=== PATIENT | female | born 1990 | race Caucasian/White ===

== ENCOUNTER 2017-11-11 09:47 | Emergency (ER) | payer BC ==
[2017-11-11 10:37] VITALS: BMI 22.9
[2017-11-11] MEDS ORDERED: Betamethasone Soluspan 30 mg/5mL Inj Susp IM ONE (10:47)
[2017-11-11 14:21] VITALS: BP 111/63; RESP 18; TEMP 98.3; O2SAT 100
[2017-11-11 18:22] VITALS: PULSE 84
--- NOTE | 2017-11-12 10:11 | OBHP ---
Datetime: 11/11/2017 10:07 IP Admit Plan: Observation/Evaluation; Discharge home Admit Comment, IP Provider: at 33 weeks 1 day gestational age presents to OB ED for steroid co urse due to growth lag and ultrasound. Patient without complaints at this time. Patient denies any co ntractions, vaginal bleeding, leakage of fluids. Patient reports good movement. Past medical history denies Past surgical history denies Medications vitamins, daily aspirin 81 mg No known drug allergies Obstetrical history Social history denies tobacco, drugs, alcohol Assessment: at 33 weeks and 1 day gestational age, small for gestational age Plan: First dose of steroid course given now Patient will return to OB ED in 24 hours for second course Patient has biophysical profile scheduled for today, patient currently getting biophysical profile s twice weekly I discussed plan with patient and all patient questions answered. FHR - Baseline A Provider: 120s-130s EGA AdmitDate IP: 33.1 Vital Signs Provider: Reviewed; Within Normal Limits IP Chief Complaint: Other NICHD Variability Prov Fetus A: Moderate 6-25bpm NICHD Accel Fetus A IP Provider: 15X15 FHR Category Provider Fetus A: Category I NICHD Decel Fetus A IP Provider: None
== END 2017-11-11 11:30 | disposition home or self-care (01) ==
LOC: H.EROB2 09:47 → H.L&D 10:39 → H.EROB2 11:30
DX: O36.5931 Maternal care for other known or suspected poor fetal growth, third trimester, fetus 1 (principal); Z3A.33 33 weeks gestation of pregnancy; Z23 Encounter for immunization
CPT/HCPCS: 96372; 99281; J0702

== ENCOUNTER 2017-11-12 16:07 | Emergency (ER) | payer BC ==
[2017-11-11 10:37] VITALS: BMI 22.9
[2017-11-12] MEDS ORDERED: Betamethasone Soluspan 30 mg/5mL Inj Susp IM ONE (16:37)
== END 2017-11-12 17:10 | disposition home or self-care (01) ==
LOC: H.EROB2 16:07
DX: O36.5931 Maternal care for other known or suspected poor fetal growth, third trimester, fetus 1 (principal); O36.8131 Decreased fetal movements, third trimester, fetus 1; Z3A.33 33 weeks gestation of pregnancy
CPT/HCPCS: 96372; 99281; J0702

== ENCOUNTER 2017-12-02 18:42 | Inpatient (IN) | payer BC ==
[2017-12-02] MEDS: Lactated Ringer's 1,000 ML IV SCH (18:30)
[2017-12-02 18:49] VITALS: BMI 23.9
[2017-12-02 19:19] LABS: BASO % 0.2 % (0.0-2.0); EOS # 0.1 K/uL (0.0-0.7); HEMOGLOBIN 11.4 g/dL (12.0-16.0); LYMPH # 1.6 K/uL (1.0-4.3); LYMPH % 11.9 % (20.0-40.0); MEAN CELL VOLUME 89.2 fl (81.0-99.0); MEAN CORPUSCULAR HEMOGLOBIN 29.8 pg (27.0-31.0); MEAN CORPUSCULAR HGB CONC 33.3 g/dL (33.0-37.0); MEAN PLATELET VOLUME 10.9 fl (7.2-11.7); MONO # 1.1 K/uL (0.0-0.8); MONO % 8.3 % (0.0-10.0); NEUT # 10.7 K/uL (1.8-7.0); NEUT % 78.6 % (50.0-75.0); NRBC % 0.1 % (0.0-0.0); RBC 3.82 Mil/uL (3.80-5.20); RED CELL DISTRIBUTION WIDTH 13.6 % (11.5-14.5); WHITE BLOOD COUNT 13.6 K/uL (4.8-10.8)
[2017-12-03] MEDS: Lactated Ringer's 1,000 ML IV SCH ×3 (07:00→19:00)
--- NOTE | 2017-12-03 10:21 | OBPN ---
Datetime: 12/03/2017 10:00 IP Progress Impression: Reassuring heart rate; Reactive non-stress test IP Informed Consent Obtain: Vaginal Delivery; Risks, Benefits and Alternatives Discussed IP Progress Plan: Continue present management; Induction; Cervical Ripening; Anticipate Vaginal Deli very Pool Provider: Negative Membranes, Provider: Intact Contraction Comments Provider: occ FHR - Baseline A Provider: 120 Presentation-Admit: Vertex IP Progress Note Comment: OB Hospitalist on-call - sign out rec'd. She was admitted for IUGR and IOL; given Cervidil x 1 dose (just removed)...rec'd steroids in Oct x 2 doses. Lbs: AB pos H/H SVE closed A; IUP at 36w IUGR PLAN - cont IOL with Cytotec. Medications, pain management, IOL, delivery and discusskolby chiu NICHD Accel Fetus A IP Provider: 15X15 FHR Category Provider Fetus A: Category I NICHD Variability Prov Fetus A: Moderate 6-25bpm Dilatation, Provider: 0 NICHD Decel Fetus A IP Provider: None Datetime: 11/12/2017 16:59 IP Fetus A Comments: Reactive NST Gestation - Est Wks by US: 33.2 Datetime: 11/11/2017 10:07 Vital Signs Provider: Reviewed; Within Normal Limits
[2017-12-04] MEDS: Lactated Ringer's 1,000 ML IV SCH ×2 (15:45→22:00)
[2017-12-04] MEDS ORDERED: Nalbuphine 20 mg/ml Inj (1 ml) IVP PRN (21:54)
[2017-12-04] MEDS ORDERED: Docusate-Senna 50 mg-8.6 mg Tab PO SCH (22:00)
[2017-12-05] MEDS ORDERED: Oxytocin 30 UNIT 30 UNITS/500 ML BAG IV ONE ×2 (03:00→10:05)
[2017-12-05] MEDS: Lactated Ringer's 1,000 ML IV SCH ×2 (03:33→10:30)
--- NOTE | 2017-12-05 10:30 | OBPN ---
Datetime: 12/05/2017 10:08 IP Progress Impression Other: IOL for IUGR IP Progress Plan: Induction Membranes, Provider: Intact Contraction Comments Provider: irregular FHR - Baseline A Provider: 130's IP Progress Note Comment: 27 yo at 36 +4 wks for IOL for IUGR, s/p cervidil #1, oral miso x6 , cervidil #2 Discussed exam w/ pt and her Pt and her are requesting that we try pitocin I explained that pitocin is not as likely to work given her Gonzalez score is 5 Will start pitocin. Will proceed w/ section f pitocin causes decelerations in hear t or fails to start labor by 3pm Pt and her demonstrated understanding of the plan NICHD Accel Fetus A IP Provider: 15X15 FHR Category Provider Fetus A: Category I NICHD Variability Prov Fetus A: Moderate 6-25bpm Dilatation, Provider: 0 Effacement, Provider: 75 Station, Provider: -2 NICHD Decel Fetus A IP Provider: None
[2017-12-05] MEDS ORDERED: ceFAZolin IV 1 gm in Dextrose 1 GM/50 ML BAG IVPB ONE (15:54)
--- NOTE | 2017-12-05 16:15 | OBPN ---
Datetime: 12/05/2017 16:02 IP Progress Impression Other: Failed induction for IUGR IP Informed Consent Obtain: Section Delivery; Risks, Benefits and Alternatives Discussed IP Procedures: Sterile Vag Exam IP Progress Plan: Deliver- Section Membranes, Provider: Intact FHR - Baseline A Provider: 130's IP Progress Note Comment: 27 yo at 36+4 wks w/ failed induction of labor for IUGR heart rate w/ late occurring decelerations with pitocin Pitocin discontinued and pt placed on her left side Discusessed w/ pa and her unchanged exam and intolerance to increasing pitocin Will proceed w/ section R/B/A discussed w/ the pt and her Consents obtained for section and for possible transfusion NICHD Accel Fetus A IP Provider: 15X15 FHR Category Provider Fetus A: Category I NICHD Variability Prov Fetus A: Moderate 6-25bpm Dilatation, Provider: 0 Effacement, Provider: 75 Station, Provider: -2 NICHD Decel Fetus A IP Provider: None
[2017-12-05] MEDS ORDERED: OXYTOCIN/0.9 % NS 20 UNIT/1,000 ML BAG IV ONE ×2 (16:59→18:45)
[2017-12-05] MEDS ORDERED: Morphine 1 mg/ml preservative-free Inj(Duramorph) ONE (17:12)
[2017-12-05] MEDS ORDERED: Propofol 10 mg/ml Inj (20 ML) ONE ×3 (17:47→18:13)
[2017-12-05] MEDS ORDERED: Oxycodone/Acetaminophen 5/325 mg Tab PO PRN ×4 (18:45→22:00)
[2017-12-05] MEDS ORDERED: Naloxone 0.4 mg/ml Inj (Adult) IVP PRN ×2 (18:57→22:00)
[2017-12-05] MEDS ORDERED: DiphenhydrAMINE 50 mg/ml Inj IVP PRN ×2 (18:57→22:00)
--- NOTE | 2017-12-05 19:02 | OBDS ---
DELIVERY PERSONNEL Nurse Leader Writer Certified: na Delivery Doctor: Dr Jones Scrub Nurse: E[employer] Manager: JOHNATHAN Isaacs;JOHNATHAN Gil Anesthesiologist: Dr Santiago Cooker Sulfite: na Resident: Dr Gomez MATERNAL INFORMATION Delivery Anesthesia: Spinal Medications in Delivery: Pitocin 30 in rl 500cc Estimated Blood Loss (ml): 750cc Placenta Cultured: No RN Comments: Primary for failed induction to baby girl;apgar9/9;had uneventful Provider Comments: Pre-op dx: 27 yo at 36+4 wks w/ failed induction of labor for IUGR Post-op dx: Same Procedure: Primary low transverse section Surgeon: [employer] Application Developer: Dr. Shahla Santacruz, OB fellow Anesthesiologist: Spinal and sedation Findings: Viable female infant delivered through clear fluid at 1749. Apgars 9 and 9. Nuchal cor d x 1. Wt 4#2, 1870 gms. Nl appearing uterus tubes and ovaries Compliactions: None EBL: 750mL LABOR SUMMARY EDC: 12/29/2017 00:00 No. Babies in Womb: 1 Attempted: No Labor Anesthesia: None LABOR INFORMATION Reason for Induction Other: IUGR Cervical Ripening Agents: Cervidil (Annotations: 10mg cervidil placed intra vaginal region by Dr. Marsha Gomez (resident) patient tolerated it well. ) Oxytocin: Induction Group B Beta Strep: unknown Antibiotics # of Doses: 3 Antibiotics Time of Last Dose: 1300 Steroids Given: None Reason Steroids Not Administered: Not Applicable MEMBRANES Membranes Rupture Method: Artificial Amniotic Fluid Color: Bloody Amniotic Fluid Amount: Small Amniotic Fluid Odor: Normal STAGES OF LABOR Stage 3 hrs: 0 Stage 3 min: 1 BABY A INFORMATION Infant Delivery Date/Time: 12/05/2017 17:49 Method of Delivery: Born in Route : No : N/A Forceps: N/A Vacuum Extraction: N/A Shoulder Dystocia : No SHOULDER DYSTOCIA BABY A Infant Delivery Date/Time: 12/05/2017 17:49 PRESENTATION/POSITION BABY A Presentation: Cephalic Cephalic Presentation: Vertex Breech Presentation: N/A PLACENTA INFORMATION BABY A Placenta Delivery Time : 12/05/2017 17:50 Placenta Method of Delivery: Manual Removal Placenta Status: Delivered SCORES BABY A Heart Rate 1 min: >100 bpm Resp Effort 1 min: Good Cry Reflex Irritability 1 min: Cough or Sneeze or Pulls Away Muscle Tone 1 min: Active Motion Color 1 min: Body [place], Extremities Blue SCORE 1 MIN: 9 Heart Rate 5 min: >100 bpm Resp Effort 5 min: Good Cry Reflex Irritability 5 min: Cough or Sneeze or Pulls Away Muscle Tone 5 min: Active Motion Color 5 min: Body [place], Extremities Blue SCORE 5 MIN: 9 INFANT INFORMATION BABY A Gestational Age at Delivery: 36.4 Gestational Status: Outcome : Liveborn Condition : Stable Infant Sex: Female IDENTIFICATION/MEDS BABY A ID Band Number: [id number] ID Band Location: Left Leg; Left Arm WEIGHT/LENGTH BABY A Birthweight (gms): 1870 Infant Weight (lb): 4 Weight (oz): 2 CORD INFORMATION BABY A No. Cord Vessels: 3 Nuchal Cord : Around Neck x1, Loose Nuchal Cord Other: 0 True Knot: 0 Cord Blood Taken: Yes Banking/Donate Info: na Suction: Mouth; Nose; Pharynx
--- NOTE | 2017-12-06 02:38 | OP ---
PROCEDURE DATE: 12/05/2017 PREOPERATIVE DIAGNOSIS: A 27-year-old 2, para 0-0-1-0 at 36 weeks and 4 days with failed induction of labor for intrauterine growth restriction. POSTOPERATIVE DIAGNOSIS: A 27-year-old 2, para 0-0-1-0 at 36 weeks and 4 days with failed induction of labor for intrauterine growth restriction. PROCEDURE: Primary low-transverse section. SURGEON: Yong Jones MD PLASTER DIE MAKER: Shahla Santacruz, the OB fellow and Dr. Mara Gomez, PGY-2 ANESTHESIOLOGIST: Stephen Santiago DO ANESTHESIA: Spinal and sedation. FINDINGS: A viable female delivered through clear fluid at 1749. Nuchal cord x 1 present. Apgars 9 and 9 at one at five minutes respectively. Weight 4 pounds 2 ounces or 1870 g. Normal-appearing uterus, tubes, and ovaries. COMPLICATIONS: None. ESTIMATED BLOOD LOSS: 750 mL. DESCRIPTION OF PROCEDURE: The patient was taken to the operating room where spinal anesthesia was placed. She was then prepped and draped in a normal sterile fashion in the dorsal supine position with leftward tilt. A Guy was placed in the bladder. A time-out was done. A Pfannenstiel skin incision was then made with a scalpel and carried through to the underlying layer of fascia with the Bovie. The fascia was incised in the midline. The incision was extended laterally with the Bovie over a Annalise. The inferior aspect of the fascial incision was then grasped with the Devendra clamps, elevated and the underlying rectus muscles were dissected off bluntly with the Bovie. Attention was then turned to the superior aspect of this incision, which in a similar fashion was grasped, tented up with the Devendra clamps, and the rectus muscles dissected off bluntly. The rectus muscles were then in the midline. The peritoneum was identified, tented up and entered sharply with Metzenbaum scissors. The peritoneal incision was then extended superiorly and inferiorly with good visualization of the bladder. The bladder blade was then inserted. The vesicouterine peritoneum was identified, grasped with pickups, and entered sharply with the Metzenbaum scissors. The incision was then extended laterally, and a bladder flap was created digitally. The bladder blade was then re-inserted in the lower uterine segment was incised in a transverse fashion with the scalpel. The uterine incision was then extended in a cephalocaudad direction digitally. The bladder blade was removed. The infant's head delivered atraumatically. There was a nuchal cord x1 that was reduced. The cord was clamped and cut. The was handed off to the awaiting the log loader. Cord blood was collected. The placenta was then delivered. The uterus was massaged. The uterus was exteriorized and cleared off all clots and debris with a dry sponge curettage. The uterine incision was then repaired with 0 Vicryl in a running locked fashion. A second layer of 0 Monocryl was used in an imbricating fashion for hemostasis and to reinforce the incision. The abdomen was then irrigated. The uterus was then returned to the abdomen. The gutters were cleared of all clots, and the peritoneum was closed with 2-0 chromic. Two interrupted stitches of 0 chromic were placed to reapproximate the rectus muscle. The fascia was reapproximated with 0 Vicryl in a running fashion. The subcutaneous fat was irrigated. The space of the fat was closed with interrupted stitches of 2-0 plain gut. The skin was then closed in a subcuticular fashion with a 4-0 Monocryl. The patient tolerated the procedure well. Sponge, lap, and needle counts were correct. The patient had received 1 g of Ancef prior to the procedure. The patient was taken to the recovery room in stable condition. Yong Jones MD MTDMargarita
[2017-12-06 06:48] LABS: HEMOGLOBIN 11.2 g/dL (12.0-16.0); MEAN CELL VOLUME 89.1 fl (81.0-99.0); MEAN CORPUSCULAR HEMOGLOBIN 30.4 pg (27.0-31.0); MEAN CORPUSCULAR HGB CONC 34.1 g/dL (33.0-37.0); RBC 3.67 Mil/uL (3.80-5.20); RED CELL DISTRIBUTION WIDTH 13.3 % (11.5-14.5); WHITE BLOOD COUNT 13.1 K/uL (4.8-10.8)
[2017-12-06] MEDS ORDERED: Multivitamin With Minerals Tab PO SCH (09:00)
[2017-12-06] MEDS: Multivitamin With Minerals Tab PO SCH (09:06)
[2017-12-07] MEDS: Multivitamin With Minerals Tab PO SCH (08:27)
--- NOTE | 2017-12-07 13:45 | OBPPN ---
Datetime: 12/07/2017 13:37 PP Pain Prov: Within normal limits PP Nausea Prov: Denies PP Flatus Prov: Yes PP BM Prov: No PP Breasts Prov: Normal PP Heart Prov: Normal PP Lungs Prov: Normal PP Abdomen/Uterus Prov: Normal PP Lochia Prov: Normal PP Vulva/Perineum Prov: Normal PP CVA Tenderness Prov: Normal PP Extremities Prov: Normal PP C/S Incision Prov: Normal PP Impression Prov: Normal progression PP Plan Prov: Continue present management PP Progress Note Prov: She feels fine. no pain tolerated with pain meds. Eating well. H/H AB pos A; S/P day 2 PLAN: cont post op care Vital Signs Provider PP: Reviewed; Within Normal Limits
[2017-12-08] MEDS: Multivitamin With Minerals Tab PO SCH (08:48)
[2017-12-08] MEDS ORDERED: Simethicone 80 mg Chewtab PO PRN (13:21)
--- NOTE | 2017-12-08 13:27 | OBDCSUM ---
Datetime: 11/12/2017 17:07 Follow up at, Provider: [facility] Discharge Instructions, Provider: Routine instructions given Discharge Diagnosis, Provider: Term Delivered Discharge Time: 12/08/2017 17:07 Follow up in weeks, Provider: 7-10days Discharge Instruct Comment, Prov: pp and postop Disch Activity Restrictions: No exercising; No lifting; No driving; No sexual activity; Nothing in v agina - [place], tampons, douche Contraception after Delivery: Undecided
--- NOTE | 2017-12-08 13:27 | OBPPN ---
Datetime: 12/08/2017 13:12 PP Pain Prov: Within normal limits PP Nausea Prov: Denies PP Flatus Prov: Yes PP BM Prov: No PP Breasts Prov: Normal PP Lungs Prov: Normal PP Abdomen/Uterus Prov: Normal PP Extremities Prov: Normal PP C/S Incision Prov: Normal PP Progress Prov: Not Applicable PP Impression Prov: Normal progression PP Plan Prov: Discharge PP Progress Note Prov: s: no c/o. pain well controlled w/ meds. using breast pump- in [facility] and not latcching on well i: [id number] doing well p: d/c home f/u 2wks for incision check IP PP Procedures: None Vital Signs Provider PP: Within Normal Limits
[2017-12-08 22:13] VITALS: BP 126/76; PULSE 64; RESP 20; TEMP 98.3; O2SAT 99
== END 2017-12-08 18:11 | disposition home or self-care (01) | DRG 766 ==
LOC: H.L&D 18:49 → H.OB/GYN 12-05 21:41
PROVIDERS: ADMIT Obstetrics & Gynecology; ATTEND Obstetrics & Gynecology
PROC: 4A1HXCZ Monitoring of Products of Conception, Cardiac Rate, External Approach (ICD-10-PCS; 2017-12-02)
PROC: 10D00Z1 Extraction of Products of Conception, Low, Open Approach (ICD-10-PCS; principal; 2017-12-05)
PROC: 3E033VJ Introduction of Other Hormone into Peripheral Vein, Percutaneous Approach (ICD-10-PCS; 2017-12-05)
DX: O36.5930 Maternal care for other known or suspected poor fetal growth, third trimester, not applicable or unspecified (principal); O61.0 Failed medical induction of labor; O76 Abnormality in fetal heart rate and rhythm complicating labor and delivery; O69.81X0 Labor and delivery complicated by cord around neck, without compression, not applicable or unspecified; Z37.0 Single live birth; Z3A.36 36 weeks gestation of pregnancy